=== PATIENT | female | born 1985 | race Caucasian/White ===

== ENCOUNTER 2023-05-23 14:37 | Inpatient (IN) | payer OTHER ==
[2023-05-23 17:12] LABS: BASO % 0.6 % (0-2.0); EOS % 0.4 % (0-4.5); HEMATOCRIT 38.4 % (32.4-45.2); HEMOGLOBIN 12.5 GM/dL (10.7-15.3); MCH 25.2 pg (25.7-33.7); MCHC 32.5 g/dl (32.0-36.0); MEAN CELL VOLUME 77.4 fl (80-96); MEAN PLT VOLUME 6.8 fl (7.5-11.1); MONO % 5.3 % (3.8-10.2); NEUT % 75.7 % (42.8-82.8); PLATELET COUNT 406 10^3/uL (134-434); RBC 4.96 M/mm3 (3.60-5.2); WHITE BLOOD COUNT 7.8 K/mm3 (4.0-10.0)
[2023-05-23 17:31] LABS: CHLORIDE 108 mmol/L (98-107); POTASSIUM 3.5 mmol/L (3.5-5.1); SODIUM 144 mmol/L (136-145)
[2023-05-23 17:33] LABS: BLOOD UREA NITROGEN 16.6 mg/dL (7-18); CALCIUM 8.9 mg/dL (8.5-10.1)
[2023-05-23 17:35] LABS: ANION GAP 9 mmol/L (4-13); CO2 28 mmol/L (21-32); GLUCOSE,RANDOM 116 mg/dL (74-106)
[2023-05-23 17:36] LABS: SGPT/ALT 24 U/L (13-61)
[2023-05-23 17:38] LABS: BILIRUBIN,TOTAL 0.2 mg/dL (0.2-1); CREATININE 0.7 mg/dL (0.55-1.3); SGOT/AST 20 U/L (15-37); TOT PROT 7.4 g/dl (6.4-8.2)
[2023-05-23 17:40] LABS: ALK PHOS 79 U/L (45-117)
[2023-05-23] MEDS ORDERED: chlordiazePOXIDE HCL 25 MG CAPSULE PO PRN (17:40)
[2023-05-23] MEDS ORDERED: ONDANSETRON 4 MG/2 ML VIAL IVPUSH PRN (17:41)
[2023-05-23] MEDS ORDERED: methaDONE HCL 10 MG TABLET ONE (18:45)
[2023-05-23] MEDS: methaDONE HCL 10 MG TABLET PO ONE (19:35)
[2023-05-23] MEDS: LACTATED RINGERS SOLUTION 1,000 ML/1,000 ML INFUS.BAG IV SCH (19:36)
[2023-05-23] MEDS: THIAMINE HCL 100 MG TABLET (FP) PO SCH (21:44)
[2023-05-23] MEDS: HEPARIN NA (PORCINE) 5,000 UNITS/ML 1ML VIAL SQ SCH (21:44)
[2023-05-23 22:07] VITALS: BMI 20.7
[2023-05-24 05:41] VITALS: RESP 18
[2023-05-24] MEDS: FOLIC ACID 1 MG TABLET (FP) PO SCH (10:12)
[2023-05-24 18:49] LABS: EPI CELLS >36 /uL (0-25.1); HYALINE CASTS 2 /uL (0-3.1); PH,URINE 6.5 (5.0-8.0); URINE APPEARANCE CLEAR; URINE BACTERIA 64 /uL (0-1359); URINE BILIRUBIN NEGATIVE (NEGATIVE); URINE COLOR YELLOW; URINE GLUCOSE (UA) NEGATIVE (NEGATIVE); URINE KETONE NEGATIVE (NEGATIVE); URINE LEUK ESTERASE 2+ (NEGATIVE); URINE NITRITE NEGATIVE (NEGATIVE); URINE PROTEIN NEGATIVE (NEGATIVE); URINE RBC 15 /uL (0-23.9); URINE UROBILINOGEN 0.2 mg/dL (0.2-1.0); URINE WBC 416 /uL (0-25.8)
[2023-05-24 18:53] LABS: OPIATES, URI NEGATIVE (NEGATIVE); PHENCYCLIDINE,URINE NEGATIVE (NEGATIVE); URINE BARBITURATES NEGATIVE (NEGATIVE); URINE BENZODIAZEPINES NEGATIVE (NEGATIVE)
[2023-05-24 19:02] LABS: COCAINE, UR POSITIVE (NEGATIVE); METHADONE, UR POSITIVE (NEGATIVE); URINE AMPHETAMINES NEGATIVE (NEGATIVE)
[2023-05-25] MEDS: ACETAMINOPHEN 500 MG TABLET (FP) PO PRN (09:14)
[2023-05-25] MEDS: methaDONE HCL 10 MG TABLET PO ONE (09:57)
[2023-05-25 11:59] VITALS: BP 140/92; PULSE 97; TEMP 98.8
== END 2023-05-25 12:30 | disposition other institution (70) | DRG 773 ==
LOC: JER 14:37 → JERBED 16:48 → OBSVTOIN 17:20 → J6S 21:36
PROVIDERS: ADMIT Internal Medicine; ATTEND Internal Medicine
PROC: HZ2ZZZZ Detoxification Services for Substance Abuse Treatment (ICD-10-PCS; principal; 2023-05-23)
DX: F11.23 Opioid dependence with withdrawal (principal); K94.03 Colostomy malfunction; Y83.9 Surgical procedure, unspecified as the cause of abnormal reaction of the patient, or of later complication, without mention of misadventure at the time of the procedure; Z59.00 Homelessness unspecified; F10.10 Alcohol abuse, uncomplicated
CPT/HCPCS: 0241U-QW; 36415; 80053; 80307; 81003; 83690; 83735; 84484; 85025; 87086; 99285-25; G0378; J1644

== ENCOUNTER 2023-05-25 13:08 | Inpatient (IN) | payer OTHER ==
[2023-05-25 13:41] VITALS: BMI 22.6
[2023-05-25] MEDS ORDERED: IBUPROFEN 400 MG TABLET (FP) PO PRN (14:01)
[2023-05-25] MEDS ORDERED: NALOXONE HCL (KLOXXADO) 8 MG SPRAY NS PRN (14:01)
[2023-05-25] MEDS ORDERED: DICYCLOMINE HCL 10 MG CAPSULE PO PRN (14:01)
[2023-05-25] MEDS ORDERED: ONDANSETRON *ODT* 4 MG TABLET SL PRN (14:01)
[2023-05-25] MEDS ORDERED: ACETAMINOPHEN 325 MG TABLET (FP) PO PRN (14:01)
[2023-05-25] MEDS ORDERED: BENZONATATE 200 MG CAPSULE PO PRN (14:01)
[2023-05-25] MEDS ORDERED: BENZOCAINE/MENTHOL (CHLORASEPTIC ) LOZENGE MM PRN (14:01)
[2023-05-25] MEDS ORDERED: MAGNESIUM HYDROX 2400MG/30ML ORAL SUSPENSION 30 ML CUP PO PRN (14:01)
[2023-05-25] MEDS ORDERED: BISMUTH SUBSALICYLATE 524 MG/30 ML PO PRN (14:01)
[2023-05-25] MEDS ORDERED: POLYETHYLENE GLYCOL (HEALTHYLAX) 3350 17 GM PACKET PO PRN (14:01)
[2023-05-25] MEDS ORDERED: NALOXONE HCL 0.4 MG/ML VIAL IM PRN (14:01)
[2023-05-25] MEDS ORDERED: guaiFENesin 600 MG TABLET.ER (FP) PO PRN (14:01)
[2023-05-25] MEDS ORDERED: LOPERAMIDE HCL 2 MG CAPSULE PO PRN (14:01)
[2023-05-25] MEDS ORDERED: NICOTINE 14 MG/24 HOURS TOPICAL PATCH TD ONE (14:17)
[2023-05-25] MEDS ORDERED: levETIRAcetam 500 MG TABLET (FP) PO ONE (14:17)
[2023-05-25] MEDS: diazePAM 5 MG TABLET PO PRN (14:29)
[2023-05-25] MEDS: BUPRENORPHINE/NALOXONE 4 MG/1 MG FILM PACKET SL SCH (14:29)
[2023-05-25] MEDS: levETIRAcetam 500 MG TABLET (FP) PO ONE (14:31)
[2023-05-25] MEDS: NICOTINE 14 MG/24 HOURS TOPICAL PATCH TD SCH (15:06)
[2023-05-25] MEDS: PRENATAL VITAMINS W/ FOLIC ACID TABLET (FP) PO SCH (15:07)
[2023-05-25] MEDS: hydrOXYzine PAMOATE 25 MG CAPSULE (FP) PO PRN (18:00)
[2023-05-25] MEDS: MELATONIN 5 MG TABLETS PO SCH (21:13)
[2023-05-25] MEDS: levETIRAcetam 500 MG TABLET (FP) PO SCH (21:13)
[2023-05-25] MEDS: THIAMINE HCL 100 MG TABLET (FP) PO SCH (21:13)
[2023-05-25] MEDS: METHOCARBAMOL 500 MG TABLET PO PRN (21:13)
[2023-05-26] MEDS: BUPRENORPHINE/NALOXONE 8 MG/2 MG FILM PACKET SL ONE (05:33)
[2023-05-26 12:48] LABS: HEMATOCRIT 35.9 % (32.4-45.2); HEMOGLOBIN 11.4 GM/dL (10.7-15.3); MCHC 31.7 g/dl (32.0-36.0); MEAN CELL VOLUME 79.1 fl (80-96); MEAN PLT VOLUME 7.4 fl (7.5-11.1); PLATELET COUNT 347 10^3/uL (134-434); RBC 4.54 M/mm3 (3.60-5.2); RDW 16.6 % (11.6-15.6); WHITE BLOOD COUNT 6.7 K/mm3 (4.0-10.0)
[2023-05-26 12:51] LABS: POTASSIUM 3.8 mmol/L (3.5-5.1)
[2023-05-26 12:58] LABS: ALBUMIN 2.6 g/dl (3.4-5.0); BLOOD UREA NITROGEN 18.3 mg/dL (7-18); CREATININE 0.7 mg/dL (0.55-1.3)
[2023-05-26 13:00] LABS: BILIRUBIN,TOTAL 0.2 mg/dL (0.2-1); CALCIUM 8.6 mg/dL (8.5-10.1); TOT PROT 6.3 g/dl (6.4-8.2)
[2023-05-26] MEDS: IBUPROFEN 600 MG TABLET (FP) PO PRN (18:11)
[2023-05-26] MEDS: MAG HYDROX/AL HYDROX/SIMETH 30 ML UNIT-DOSE CUP PO PRN (18:13)
[2023-05-27] MEDS: BUPRENORPHINE/NALOXONE 8 MG/2 MG FILM PACKET SL SCH (10:12)
[2023-05-27] MEDS: cloNIDine HCL 0.1 MG TABLET PO PRN (18:05)
[2023-05-28] MEDS: amLODIPine BESYLATE 5 MG TABLET (FP) PO SCH (11:24)
[2023-05-31 06:08] VITALS: TEMP 97.3
[2023-05-31] MEDS: BUPRENORPHINE/NALOXONE 8 MG/2 MG FILM PACKET SL SCH (09:12)
[2023-05-31 09:22] VITALS: BP 119/76; PULSE 76; RESP 18
== END 2023-05-31 09:17 | disposition home or self-care (01) | DRG 773 ==
LOC: YASAS 13:08 → Y6N 14:39
PROVIDERS: ADMIT Allergy & Immunology; ATTEND Surgery
PROC: HZ2ZZZZ Detoxification Services for Substance Abuse Treatment (ICD-10-PCS; principal; 2023-05-25)
DX: F11.23 Opioid dependence with withdrawal (principal); F14.20 Cocaine dependence, uncomplicated; F17.210 Nicotine dependence, cigarettes, uncomplicated; F43.10 Post-traumatic stress disorder, unspecified; G40.909 Epilepsy, unspecified, not intractable, without status epilepticus; Z86.19 Personal history of other infectious and parasitic diseases; Z85.038 Personal history of other malignant neoplasm of large intestine; Z93.3 Colostomy status; Z59.00 Homelessness unspecified
CPT/HCPCS: 36415; 80053; 80177; 80305; 81025; 85027; 86593; 86780; 87635; 93005; 93010

== ENCOUNTER 2023-07-18 23:07 | Inpatient (IN) | payer OTHER ==
[2023-07-18 23:42] VITALS: BMI 20.9
[2023-07-19] MEDS ORDERED: LOPERAMIDE HCL 2 MG CAPSULE PO PRN (01:09)
[2023-07-19] MEDS ORDERED: POLYETHYLENE GLYCOL (HEALTHYLAX) 3350 17 GM PACKET PO PRN (01:09)
[2023-07-19] MEDS ORDERED: BENZONATATE 200 MG CAPSULE PO PRN (01:09)
[2023-07-19] MEDS ORDERED: NALOXONE HCL 0.4 MG/ML VIAL IM PRN (01:09)
[2023-07-19] MEDS ORDERED: guaiFENesin 600 MG TABLET.ER (FP) PO PRN (01:09)
[2023-07-19] MEDS ORDERED: MAGNESIUM HYDROX 2400MG/30ML ORAL SUSPENSION 30 ML CUP PO PRN (01:09)
[2023-07-19] MEDS ORDERED: BENZOCAINE/MENTHOL (CHLORASEPTIC ) LOZENGE MM PRN (01:09)
[2023-07-19] MEDS ORDERED: BISMUTH SUBSALICYLATE 524 MG/30 ML PO PRN (01:09)
[2023-07-19] MEDS ORDERED: DICYCLOMINE HCL 10 MG CAPSULE PO PRN (01:09)
[2023-07-19] MEDS ORDERED: NALOXONE HCL (KLOXXADO) 8 MG SPRAY NS PRN (01:09)
[2023-07-19] MEDS ORDERED: MAG HYDROX/AL HYDROX/SIMETH 30 ML UNIT-DOSE CUP PO PRN (01:09)
[2023-07-19] MEDS: levETIRAcetam 500 MG TABLET (FP) PO ONE (01:50)
[2023-07-19] MEDS ORDERED: levETIRAcetam 500 MG TABLET (FP) PO ONE (02:24)
[2023-07-19] MEDS ORDERED: cloNIDine HCL 0.1 MG TABLET ONE (02:58)
[2023-07-19] MEDS: cloNIDine HCL 0.1 MG TABLET PO ONE (03:05)
[2023-07-19] MEDS: PRENATAL VITAMINS W/ FOLIC ACID TABLET (FP) PO SCH (09:20)
[2023-07-19] MEDS: levETIRAcetam 500 MG TABLET (FP) PO SCH (09:21)
[2023-07-19] MEDS: amLODIPine BESYLATE 5 MG TABLET (FP) PO SCH (09:21)
[2023-07-19] MEDS: methaDONE HCL 10 MG TABLET PO ONE (09:40)
[2023-07-19] MEDS: cloNIDine HCL 0.1 MG TABLET PO SCH (10:17)
[2023-07-19] MEDS: hydrOXYzine PAMOATE 25 MG CAPSULE (FP) PO PRN (13:06)
[2023-07-19] MEDS: METHOCARBAMOL 500 MG TABLET PO PRN (13:06)
[2023-07-19] MEDS: methaDONE HCL 10 MG TABLET PO PRN (18:13)
[2023-07-19] MEDS: THIAMINE 100 MG TABLET PO SCH (22:41)
[2023-07-19] MEDS: MELATONIN 5 MG TABLETS PO SCH (22:42)
[2023-07-20] MEDS: amLODIPine BESYLATE 10 MG TABLET (FP) PO SCH (09:48)
[2023-07-20] MEDS: methaDONE 40 MG, methaDONE 10 MG PO ONE (09:50)
[2023-07-20] MEDS: ONDANSETRON *ODT* 4 MG TABLET SL PRN (09:50)
[2023-07-20] MEDS ORDERED: methaDONE HCL 10 MG TABLET (FOR DETOX USE ONLY) PO ONE (10:00)
[2023-07-20 12:23] LABS: HEMATOCRIT 36.6 % (32.4-45.2); MCH 26.3 pg (25.7-33.7); MCHC 32.8 g/dl (32.0-36.0); MEAN CELL VOLUME 80.2 fl (80-96); MEAN PLT VOLUME 7.5 fl (7.5-11.1); PLATELET COUNT 328 10^3/uL (134-434); RBC 4.56 M/mm3 (3.60-5.2); RDW 15.6 % (11.6-15.6); WHITE BLOOD COUNT 8.6 K/mm3 (4.0-10.0)
[2023-07-20 12:47] LABS: ALBUMIN 3.4 g/dl (3.4-5.0); BLOOD UREA NITROGEN 20.7 mg/dL (7-18); CALCIUM 8.8 mg/dL (8.5-10.1)
[2023-07-20 12:52] LABS: BILIRUBIN,TOTAL 0.3 mg/dL (0.2-1)
[2023-07-20] MEDS: ACETAMINOPHEN 325 MG TABLET (FP) PO PRN (14:47)
[2023-07-21] MEDS: IBUPROFEN 600 MG TABLET (FP) PO PRN (01:11)
[2023-07-21] MEDS: methaDONE 40 MG, methaDONE 20 MG PO ONE (09:23)
[2023-07-21] MEDS: cloNIDine HCL 0.1 MG TABLET PO PRN (17:30)
[2023-07-22] MEDS: methaDONE 40 MG, methaDONE 30 MG PO ONE (09:17)
[2023-07-22] MEDS ORDERED: methaDONE HCL 10 MG TABLET (FOR DETOX USE ONLY) PO ONE (10:00)
[2023-07-23] MEDS: IBUPROFEN 400 MG TABLET (FP) PO PRN (02:26)
[2023-07-23] MEDS: methaDONE HCL 40 MG DISPERSABLE TABLET PO ONE (09:38)
[2023-07-24] MEDS: methaDONE 80 MG, methaDONE 10 MG PO ONE (10:29)
[2023-07-25 09:26] VITALS: BP 126/71; PULSE 80; RESP 18; TEMP 97.8
[2023-07-25] MEDS ORDERED: methaDONE HCL 10 MG TABLET PO ONE (09:33)
[2023-07-25] MEDS: methaDONE 80 MG, methaDONE 10 MG PO ONE (09:57)
== END 2023-07-25 12:05 | disposition other institution (70) | DRG 773 ==
LOC: YASAS 23:07 → Y5N 07-19 02:01 → UNDOADMIN 07-19 02:01 → Y6N 07-19 02:27
PROVIDERS: ADMIT Allergy & Immunology; ATTEND Allergy & Immunology
PROC: HZ2ZZZZ Detoxification Services for Substance Abuse Treatment (ICD-10-PCS; principal; 2023-07-19)
DX: F11.23 Opioid dependence with withdrawal (principal); F14.20 Cocaine dependence, uncomplicated; F17.210 Nicotine dependence, cigarettes, uncomplicated; F43.10 Post-traumatic stress disorder, unspecified; I10 Essential (primary) hypertension; G40.909 Epilepsy, unspecified, not intractable, without status epilepticus; Z85.038 Personal history of other malignant neoplasm of large intestine; Z93.3 Colostomy status; Z86.19 Personal history of other infectious and parasitic diseases; Z56.0 Unemployment, unspecified; Z59.00 Homelessness unspecified
CPT/HCPCS: 36415; 80053; 80305; 80307; 81025; 85027; 86593; 86780; 87811; 93005; 93010; Q0162

== ENCOUNTER 2023-07-25 12:17 | Inpatient (IN) | payer OTHER ==
[~2023-07-25 12:17] MED LIST: BENZOCAINE/MENTHOL (CHLORASEPTIC ) LOZENGE MM PRN; BENZONATATE 200 MG CAPSULE PO PRN; IBUPROFEN 400 MG TABLET (FP) PO PRN; LOPERAMIDE HCL 2 MG CAPSULE PO PRN; MAG HYDROX/AL HYDROX/SIMETH 30 ML UNIT-DOSE CUP PO PRN; MAGNESIUM HYDROX 2400MG/30ML ORAL SUSPENSION 30 ML CUP PO PRN; NALOXONE HCL (KLOXXADO) 8 MG SPRAY NS PRN; NALOXONE HCL 0.4 MG/ML VIAL IM PRN; NICOTINE 7 MG/24 HOURS TOPICAL PATCH TD PRN; POLYETHYLENE GLYCOL (HEALTHYLAX) 3350 17 GM PACKET PO PRN; guaiFENesin 600 MG TABLET.ER (FP) PO PRN; methaDONE HCL 10 MG TABLET PO SCH
[2023-07-25] MEDS: levETIRAcetam 500 MG TABLET (FP) PO SCH (13:34)
[2023-07-25] MEDS: MELATONIN 5 MG TABLETS PO SCH (13:34)
[2023-07-25] MEDS: PRENATAL VITAMINS W/ FOLIC ACID TABLET (FP) PO SCH (13:35)
[2023-07-25] MEDS: THIAMINE 100 MG TABLET PO SCH (13:35)
[2023-07-25] MEDS: methaDONE 80 MG, methaDONE 10 MG PO ONE (13:36)
[2023-07-25] MEDS: amLODIPine BESYLATE 10 MG TABLET (FP) PO SCH (13:36)
[2023-07-25] MEDS: hydrOXYzine PAMOATE 25 MG CAPSULE (FP) PO PRN (18:32)
[2023-07-25] MEDS: NICOTINE POLACRILEX 2 MG GUM BUC PRN (18:33)
[2023-07-26] MEDS ORDERED: methaDONE 80 MG, methaDONE 10 MG PO SCH (06:30)
[2023-07-26] MEDS: methaDONE 80 MG, methaDONE 10 MG PO SCH ×2 (07:39→07:42)
[2023-07-26] MEDS: diphenhydrAMINE HCL 25 MG CAPSULE (FP) PO PRN (12:53)
[2023-07-26] MEDS: MIRTAZAPINE 15 MG TABLET (FP) PO SCH (21:10)
[2023-07-27] MEDS: methaDONE HCL 40 MG DISPERSABLE TABLET PO SCH (06:38)
[2023-07-27] MEDS: IBUPROFEN 600 MG TABLET (FP) PO PRN (14:21)
[2023-07-30] MEDS: ACETAMINOPHEN 325 MG TABLET (FP) PO PRN (16:50)
[2023-08-03] MEDS: BACLOFEN 10 MG TABLET (FP) PO SCH (22:43)
[2023-08-06 06:50] VITALS: RESP 18
[2023-08-09 07:18] VITALS: TEMP 96.1
[2023-08-10] MEDS: methaDONE HCL 40 MG DISPERSABLE TABLET PO SCH (06:25)
[2023-08-10 08:53] VITALS: BP 129/78; PULSE 97
== END 2023-08-10 09:35 | disposition home or self-care (01) | DRG 772 ==
LOC: YASAS 12:17 → Y5N 12:18
PROVIDERS: ADMIT Allergy & Immunology; ATTEND Psychiatry & Neurology Pain Medicine
PROC: HZ42ZZZ Group Counseling for Substance Abuse Treatment, Cognitive-Behavioral (ICD-10-PCS; principal; 2023-07-25)
DX: F11.20 Opioid dependence, uncomplicated (principal); F14.20 Cocaine dependence, uncomplicated; F17.210 Nicotine dependence, cigarettes, uncomplicated; F43.10 Post-traumatic stress disorder, unspecified; G40.909 Epilepsy, unspecified, not intractable, without status epilepticus; L98.8 Other specified disorders of the skin and subcutaneous tissue; Z85.038 Personal history of other malignant neoplasm of large intestine; Z87.19 Personal history of other diseases of the digestive system; Z93.3 Colostomy status; Z88.0 Allergy status to penicillin
CPT/HCPCS: J0475